=== PATIENT | male | born 1975 | race Caucasian/White ===

== ENCOUNTER 2018-02-05 23:11 | Emergency (ER) | payer OTHER ==
[2018-02-05 23:17] VITALS: BP 114/78; BMI 22.7
--- NOTE | 2018-02-05 23:58 | DR.GENAD ---
HPI - PCP Primary Care Physician: NFD - Complaint/Symptoms Chief Complaint Doctors Comments: Patient states that he was working at [employer] and injured his left shoulder. He admits to having left shoulder surgery years ago and thinks that he might have aggravated it. Chief Complaint:: PT C/O LT SHOULDER PAIN HAD SURGERY 1 YEAR AGO ON LT SHOULDER - Source History Provided: Patient - Mode of Arrival Mode of Arrival: Ambulatory - Timing Onset of Chief Complaint: 01/22/18 PMH - PMH Past Medical History: No Past Surgical History: Yes Surgical History: Ortho Surgery Past Surgical History Comment: LT SHOULDER AND HERNIA REPAIR - Family History History of Family Medical Conditions: Yes Family Medical History: Cancer - Social History Type of Tobacco Use: Cigarettes Does any household member use tobacco: Yes Alcohol Use: None Do you use any recreational Drugs:: No Lives With: Family Lives Where: Home - infectious screening In the last 2 months have you had wt loss of >10#?: NO Have you had fever, night sweats or hemotysis?: No Have you traveled outside the country in the last 6 months?: No Isolation: Standard ROS - Review of Systems Constitutional: No Symptoms Reported Eyes: No Symptoms Reported ENTM: No Symptoms Reported Respiratoy: No Symptoms Reported Cardiovascular: No Symptoms Reported Gastrointestinal/Abdominal: No Symptoms Reported Genitourinary: No Symptoms Reported Neurological: No Symptoms Reported Musculoskeletal: No Symptoms Reported Integumentary: No Symptoms Reported Hematologic/Lymphatic: No Symptoms Reported Endocrine: No Symptoms Reported Psychiatric: No Symptoms Reported All Other Systems: Reviewed and Negative PE - Vital Signs Vitals: Temperature 97.2 F Pulse Rate 95 Respiratory Rate 20 Blood Pressure 114/78 O2 Sat by Pulse Oximetry 99 - General Limitations: No Limitations General Appearance: Alert, In No Apparent Distress - Head Head Exam: Normal Inspection, Atraumatic - Eyes Eye exam: Normal Appearance, PERRL, EOMI - ENT ENT Exam: Normal Exam External Ear Exam: Normal External Inspection TM/Canal Exam: Bilateral Normal Nose Exam: Normal Nose Exam Mouth Exam: Normal Inspection Throat Exam: Normal Inspection - Neck Neck Exam: Normal Inspection - Chest Chest Inspection: Normal Inspection - Respiratory Respiratory Exam: Normal Lung Sounds Bilat Respiratory Exam: Bilateral Clear to Auscultation - Cardiovascular Cardiovascular Exam: Regular Rate, Normal Rhythm - Abdominal Exam Abdominal Exam: Normal Inspection, Normal Bowel Sounds Abdominal Tenderness: negative: RUQ, RLQ, LUQ, LLQ, Epigastrium, Suprapubic, Diffuse, Mild, Moderate, Severe, Other - Extremities Extremities Exam: Normal Inspection, Full ROM - Back Back Exam: Normal Inspection, Full ROM - Neurologic Neurological Exam: Alert, Oriented X3, CN II-XII Intact - Psychiatric Psychiatric Exam: Normal Affect - Skin Skin Exam: Warm, Dry, Intact Course - Education/Counseling Educated On: Treatment, Diagnosis, Needs for Follow Up ROR - XRAY XRAY Interpreted by: Radiologist (Cervical Spine: No significant abnormality. Left shoulder: There is minimal AC joint DJD. The glenohumeral joint is normally maintained. No acute cortical disruption or malalignment is identified. The visualized chest is unremarkable. Impression: Minimal AC joint DJD. Otherwise unremarkable.) - Diagnosis Discharge Problem: DJD of left shoulder Qualifiers: Osteoarthritis type: unspecified Qualified Code(s): M19.012 - Primary osteoarthritis, left shoulder - Discharge Plan Condition: Stable - Follow ups/Referrals Follow ups/Referrals: NFD,None [Primary Care Provider] - 3 days - Instructions
--- NOTE | 2018-02-06 00:53 | RAD ---
Cervical spine, AP, lateral, and open-mouth views Indication: Shoulder pain, loss of last dipper Comparison: None Findings: The lower portion of the C7 vertebra is obscured on the lateral views, limiting evaluation. The visualized cervical spine alignment and vertebral body heights are normally maintained. No acute cortical disruption is seen. The disc spaces and facet joints are grossly intact. No significant pre vertebral soft tissue swelling. The C1-2 articulation is normal on the open-mouth view. Impression: No significant abnormality. Reported By:
--- NOTE | 2018-02-06 00:54 | RAD ---
Left shoulder, three views. Indication: Shoulder pain. Denies trauma. Findings: There is minimal AC joint DJD. The glenohumeral joint is normally maintained. No acute shara ical disruption or malalignment is identified. The visualized chest is unremarkable. Impression: Minimal AC joint DJD. Otherwise unremarkable. Reported By:
[2018-02-06] MEDS ORDERED: TORADOL 60 MG VIAL IM ONE (01:30)
[2018-02-06] MEDS ORDERED: TORADOL 30 MG VIAL ONE (01:31)
== END 2018-02-06 01:40 | disposition home or self-care (01) ==
LOC: ER 23:24
DX: M19.012 Primary osteoarthritis, left shoulder (principal)
CPT/HCPCS: 72040; 73030; 96372; 99282; J1885